=== PATIENT | male | born 2000 | race Caucasian/White ===

== ENCOUNTER 2019-12-06 13:16 | Emergency (ER) | payer OTHER ==
[~2019-12-06] VITALS: Ht 177.8 cm; Wt 68.0 kg
[2019-12-06 13:23] VITALS: Ht 177.8 cm; Wt 68.0 kg
[2019-12-06 15:00] VITALS: BP 130/83
== END 2019-12-06 15:00 | disposition home or self-care (01) ==
LOC: ED 13:16
DX: S43.102A Unspecified dislocation of left acromioclavicular joint, initial encounter (principal); W22.8XXA Striking against or struck by other objects, initial encounter; Y93.11 Activity, swimming; Y92.89 Other specified places as the place of occurrence of the external cause; Y99.8 Other external cause status